=== PATIENT | male | born 1985 | race Caucasian/White ===

== ENCOUNTER → 2023-02-05 | Outpatient (CLI) | payer OTHER ==
[~2023-02-05] MED LIST: PROHANCE 279.3MG/ML 15ML VIAL ONE; PROHANCE 279.3MG/ML 5ML VIAL ONE
== END ==
LOC: M PLAIMG 12:16
PROVIDERS: ATTEND Physician Assistant
DX: M54.6 Pain in thoracic spine (principal); M85.48 Solitary bone cyst, other site
CPT/HCPCS: 72157; A9576

== ENCOUNTER → 2023-02-14 | Outpatient (CLI) | payer OTHER | LOC: M PLAIMG 12:54 | PROVIDERS: ATTEND Physician Assistant | DX: M25.511 Pain in right shoulder (principal) ==

== ENCOUNTER → 2023-11-06 | Outpatient (CLI) | payer OTHER ==
[2023-11-06 14:01] LABS: VITAMIN B12 LEVEL 648 PG/ML (211-911)
[2023-11-06 14:03] LABS: FOLATE > 24.00 NG/ML (>5.4)
== END ==
LOC: M PLALAB 11:29
PROVIDERS: ATTEND Psychiatry & Neurology Neurology
DX: E53.8 Deficiency of other specified B group vitamins (principal)